=== PATIENT | male | born 1965 | race Caucasian/White ===

== ENCOUNTER 2020-05-16 10:17 | Emergency (ER) | payer SELFPAY ==
[~2020-05-16] VITALS: Ht 167.6 cm; Wt 68.2 kg
[2020-05-16] MEDS ORDERED: HYDROCO/APAP1 TA9 PO (12:15)
[2020-05-16] MEDS ORDERED: IBUPROFEN600 MG PO (12:15)
[2020-05-16] MEDS ORDERED: CLEOCIN300 MG PO (12:15)
[2020-05-16 12:50] VITALS: BP 124/78
== END 2020-05-16 12:50 | disposition home or self-care (01) | DRG 159 ==
LOC: ED 10:17
DX: K04.7 Periapical abscess without sinus (principal); F17.210 Nicotine dependence, cigarettes, uncomplicated